=== PATIENT | female | born 1960 | race Caucasian/White ===

== ENCOUNTER → 2024-03-20 09:30 | Outpatient (REF) | payer OTHER, SELFPAY | LOC: HWRAD 09:30 | PROVIDERS: ATTENDING PHYSICIAN Physician Assistant Medical | DX: M85.80 Other specified disorders of bone density and structure, unspecified site (principal) | CPT/HCPCS: 77080 ==

== ENCOUNTER → 2024-04-17 13:36 | Outpatient (REF) | payer OTHER, SELFPAY | LOC: HWRAD 13:36 | PROVIDERS: ATTENDING PHYSICIAN Physician Assistant | DX: R91.8 Other nonspecific abnormal finding of lung field (principal) | CPT/HCPCS: 71250 ==

== ENCOUNTER → 2025-01-02 13:18 | Outpatient (REF) | payer OTHER, SELFPAY | LOC: HWWDC 13:18 | PROVIDERS: ATTENDING PHYSICIAN Nurse Practitioner Adult Health; FAMILY PHYSICIAN Physician Assistant Medical | DX: Z12.31 Encounter for screening mammogram for malignant neoplasm of breast (principal) | CPT/HCPCS: 77063; 77067 ==

== ENCOUNTER 2025-02-13 18:17 | Inpatient (IN) | payer OTHER, SELFPAY ==
[2025-02-13] VITALS (7 sets, daily range): BP systolic 127–152; BP diastolic 73–90; BMI 23.5; BMI 23.4
[2025-02-13 10:45] LABS: Glucose - Point of Care 94 mg/dl (70-99)
[2025-02-13 11:54] LABS: Hematocrit 46.4 % (37.0-47.0); Hemoglobin 15.6 g/dL (12.0-16.0); Mean Corp Hgb Conc. 33.6 g/dL (33.0-37.0); Mean Corpuscular Volume 94.7 fL (81.0-99.0); Platelet Count 290 10^3/uL (130-400); Red Cell Dist. Width 12.9 % (11.5-14.5)
--- NOTE | 2025-02-13 11:54 | ED.GENMED ---
History of Present Illness
General
Chief Complaint: Blood Sugar Problem
Source: patient
Exam Limitations: none
Time Seen by Provider: 02/13/25 11:52
History of Present Illness
History of Present Illness:
65yoF with a history of anxiety presenting with her daughter for evaluation of memory loss. Patient went to the gym this morning around 9am and did a strength fitness class. At the end of the class, she alerted the instructor that she was feeling
disoriented. Patient had memory loss and did not remember doing the fitness class and did not remember getting to the gym. She had a conversation with her daughter this morning before the gym and was acting normally. Patient also does not
remember getting to the hospital or going through triage. She is otherwise asymptomatic and denies any headache, visual changes, dizziness, weakness, paresthesias. Of note, patient has been under a lot of stress as she is currently undergoing a
wine certification.
Phy Exam
General Physical Exam
General Presentation: well appearing and no apparent distress
General Skin: warm and dry
General Habitus: normal
General Mental: alert
ENT Exam
ENT Exam: normocephalic
Cardiovascular Exam
Cardiovascular Exam: regular rate/rhythm and no murmur
Pulmonary Exam
Pulmonary Exam: lungs clear, no respiratory distress, no rales, no crackles, no rhonchi and no wheezing
Neurological Exam
Neurological Exam: alert, CN II-XII intact, no motor deficits, no sensory deficits, speech normal and other (Asks repetitive questions. Oriented to person, place, time. CN 2-12 intact. Negative drift x4. Normal finger to nose and heel to reardon
bilaterally.)
Skin Exam
Skin Exam: normal color and warm/dry
Psychiatric Exam
Psychiatric Exam: normal mood/affect
Scores
NIH Stroke Score
Level of Consciousness: 0 - Alert
LOC Questions: 0-Answers both correctly
LOC Commands: 0-Performs both correctly
Best Horizontal Gaze: 0-Normal
Visual Beckham: 0=Normal, no visual loss
Facial Palsy: 0=Normal, symmetrical
Motor - Right Arm: 0=No drift 10 seconds
Motor - Left Arm: 0=No drift 10 seconds
Motor - Right Le-No drift 5 seconds
Motor - Left Le-No drift 5 seconds
Limb Ataxia: 0-Absent
Sensation: 0-Normal
Best Language: 0-No aphasia
Dysarthria: 0-Normal
Extinction and Inattention: 0-No abnormality
NIH Total Score:: 0
Course
Orders/Labs/Results
Orders:
Orders
02/13/25 10:46
Electrocardiogram (*1) Urgent
Reason for Study: Chest Pain
EKG- Treatment ONCE
02/13/25 11:35
CBC/No Diff [Complete Blood Count/No Diff] Urgent
Comprehensive Metabolic Panel Urgent
Troponin I Urgent
02/13/25 12:10
CT Head W/o Iv Contrast Urgent
Comment:
Reason For Exam: acute memory loss
02/13/25 12:56
Consult Neurology [NEUROLOGY CONSULT] Urgent
Consulting Provider: Luis Craven
Was physician already notified: Yes
02/13/25 14:01
EEG Routine Routine
Reason for Exam: TGA
Neurology Consult:: DR. HARGROVE
MR Brain Without Contrast Routine
Comment:
Reason For Exam: TGA
Recent pill cam endoscopy?: No
02/13/25 14:17
Acetaminophen [Tylenol] 1,000 mg PO NOW STA
Abnormal Lab Results
02/13/25
11:35
MCH 31.8 H pg
(27.0-31.0)
BUN 19 H mg/dl
(7-17)
02/13/25 11:35
02/13/25 11:35
Vital Signs
Initial and Last Documented VS:
Initial Vital Signs
Temp Pulse Resp BP Pulse Ox
97.7 F 67 16 148/80 100
02/13/25 10:41 02/13/25 10:41 02/13/25 10:41 02/13/25 10:41 02/13/25 10:41
Last Documented Vital Signs
Temp Pulse Resp BP Pulse Ox
97.7 F 63 15 152/90 98
02/13/25 10:41 02/13/25 13:51 02/13/25 13:51 02/13/25 12:12 02/13/25 13:15
MDM/Problems Addressed
Differential Diagnosis Includes:
65yoF here with acute memory loss that began this morning after doing an exercise class. No other symptoms. She does not remember going to the gym or coming to the hospital. Also does not remember that her is [place] currently. She has been
under a lot of stress recently. VSS. She is awake and alert. No focal neuro deficits noted and NIHSS is 0. Differential diagnosis includes but is not limited to: transient global amnesia, CVA, partial seizure
Initial ED plan: Check cardiac labs, EKG, and CT head. Will discuss with neurology.
*Pulse Oximetry
SaO2: 100
Oxygen Mode of Delivery: Room air
Patient hypoxic: no (100%)
*EKG
Interpreted by ED Provider?: Yes
EKG Intrepretation Date: 02/13/25
Heart Rate: 56
Rate: bradycardiac
Rhythm: sinus
[place]: normal axis
Interval: normal interval
QRS Pattern: normal QRS
Ischemia: no ischemia
*Critical Care Note
Total Time (30-74mins, 75-104mins- exclusive of procedures): Not Applicable
Update Note
Update Note:
EKG shows NSR without ischemic changes. CT head negative for acute findings. Patient evaluated by neurology and Dr. Craven agrees with likely diagnosis of transient global amnesia. On reassessment, patient continues to have memory loss and does not
recall speaking with me or the neurologist earlier today. Neurology recommending MRI and EEG. Patient admitted for further evaluation.
ED Attending Note
-
Portions of this chart may have been created with voice recognition software.� Occasional wrong word or��sound alike� substitutions may have occurred due to the inherent limitations of voice recognition software.
Discharge Plan
Departure
Patient Disposition: Admit
Date of Disposition: 02/13/25
Time of Disposition: 14:18
Presentation/result/management discussed w/ accepting MD/DO: Hospitalist
Discharge Problem:
Amnesia
Prescriptions:
No Action
fluticasone propionate [Flonase] 50 mcg/actuation [place],Suspension
1 spray INTRANASAL DAILYPRN PRN (Reason: allergies)
Referrals:
UNKNOWN - PT NOT,INTERVIEWE [Unknown Provider]
Interventions
Interventions:
*Risk Screen - Suicide Last Done: 02/13/25 10:41
*General Assessment Last Done: 02/13/25 10:41
*Neglect/Abuse Screening Last Done: 02/13/25 10:41
*ED- Fall Risk Assessment Last Done: 02/13/25 12:16
*ED COVID-19 Vaccine History Last Done: 02/13/25 13:30
ED- Neurological Assessment Last Done: 02/13/25 13:45
Discharge Date and Time
Print Language: DANISH
[2025-02-13 12:13] LABS: ALT (SGPT) 20 U/L (0-35); AST (SGOT) 26 U/L (14-36); Albumin 5.0 g/dl (3.5-5.0); Alkaline Phosphatase 51 U/L (38-126); Blood Urea Nitrogen 19 mg/dl (7-17); Calcium 9.5 mg/dl (8.4-10.2); Carbon Dioxide 28 mmol/L (22-30); Chloride 105 mmol/L (98-107); Glucose 94 mg/dl (70-99); Potassium 4.7 mmol/L (3.5-5.1); Sodium 138 mmol/L (135-145); Total Protein 8.2 g/dl (6.3-8.2); eGFR > 60.00
[2025-02-13 12:25] LABS: Troponin I < 0.012 ng/ml
--- NOTE | 2025-02-13 13:53 | CON.NEURO ---
Neuro Assessment/Plan
Assessment
head CT imgs rev'd, normal report pending
clinically this is transient global amnesia, which may be a plumbing problem (TIA) or electrical problem (simple partial seizure) or it's own entity.
symptoms are not resolved after ~5 hours
In this [place] standard of care is typically brain MRI without contrast and routine EEG, though the tests are typically unremarkable, I would consider optional, and it rarely recurs. She initially wanted to go home, but ultimately agreed to stay.
Consultation
Order
Date of Consultation: 02/13/25
Requesting Provider:
Reason for Consult:
Subjective/Objective
Subjective Data
Date of Service: February 13, 2025
from ED notes:
65yoF with a history of anxiety presenting with her daughter for evaluation of memory loss. Patient went to the gym this morning and did a strength fitness class. At the end of the class, she alerted the instructor that she was feeling
disoriented. Patient had memory loss and did not remember doing the fitness class and did not remember getting to the gym. She got to the gym around 9 AM this morning. She had a conversation with her daughter prior to this and was acting
normally. Patient also does not remember getting to the hospital or going through triage. She is otherwise asymptomatic and denies any headache, visual changes, dizziness, weakness, paresthesias. Of note, patient has been under a lot of stress as
she is currently undergoing a wine certification.
In the ED, she kept asking the same questions and appeard to have difficulty understanding what I was explaining; after CT scan she did not remember speaking with me earlier.
Objective Data
Vital Signs
Temp Pulse Resp BP Pulse Ox
36.5 C 67 16 148/80 100
02/13/25 10:41 02/13/25 10:41 02/13/25 10:41 02/13/25 10:41 02/13/25 11:54
Lab Results
02/13/25 11:35
02/13/25 11:35
Sodium 138 mmol/L (135-145) 02/13/25 11:35
Potassium 4.7 mmol/L (3.5-5.1) 02/13/25 11:35
BUN 19 mg/dl (7-17) H 02/13/25 11:35
Glucose 94 mg/dl (70-99) 02/13/25 11:35
Calcium 9.5 mg/dl (8.4-10.2) 02/13/25 11:35
Patient Allergies
Cephalosporins Allergy (Verified 02/13/25 10:46)
Shortness of Breath
Iodinated Contrast Media Allergy (Verified 02/13/25 10:46)
Anaphylaxis
penicillin G Allergy (Verified 02/13/25 10:46)
Rash
Penicillins Allergy (Verified 02/13/25 10:46)
Rash
Physical Exam
-
repeatedly asking the same questions
AAOx age, month, speech clear, language intact
VFF, EOMI, face symmetric,
full strength b/l UE/LE, no drift
sensation intact to touch/temp
finger to nose intact
DTR normal/symmetric
[2025-02-13] MEDS: TYLENOL 1000 MG PO (14:26)
--- NOTE | 2025-02-13 14:29 | PHANOTE ---
med rec note- patient stated she stopped her Livalo 1mg and Lexapro 10mg both were daily
--- NOTE | 2025-02-13 15:56 | CM ---
CM reviewed chart, patient seen bedside with daughter and friends, initial assessment completed. 65yoF with a history of anxiety presenting with her daughter for evaluation of memory loss.
Patient resides with her daughter, son, and in a multiple story home, bedroom on the second floor, 2-3 steps to enter home. Patient is independent with ADLs/IADLs, denies DME, VN/SNF hx. Patient PCP Carine Cuello, pharmacy [facility], confirms prescription coverage. Patient denies insecurities at home. CM will continue to follow for all discharge planning needs.
Plan; home no needs likely
--- NOTE | 2025-02-13 16:26 | EEG.RPT ---
Electroencephalogram Report
Recording
Date of EE02/13/25
Type of EEG: Routine
Length of EEG recordin mins
Done with Video Recording: Yes
Patient Status: Inpatient
Recording Conditions: Awake and Drowsy
Hyperventilation Performed: No
Photic Stimulation Performed: Yes
Hand Dominance: Right
Report
Clinical Background:�65 year old woman with transient global amnesia
Introduction: A routine bedside EEG was done using International 10-20 electrode placement protocol.
Background: In the most alert state, the PDR is 10-11 Hz in frequency with normal amplitude. There is spontaneous variability and reactivity.�
Sleep: No sleep is seen.�
Focal/epileptiform: There were no focal or epileptiform discharges. No clinical or electrographic seizures occurred during this recording.
Photic stimulation: resulted in normal driving response. There was no photo myogenic or photoparoxysmal response.�
Impression: Normal EEG
--- NOTE | 2025-02-13 16:42 | HPS.HSE ---
Addendum entered and electronically signed by Jas Nguyen MD 02/14/25 13:18:
EEG completed however read pending
CT brain without acute findings
Hemodynamically stable
Labs unremarkable
Differential diagnosis for aphasia is transient global in nature, TIA, acute conversion disorder, transient global amnesia as she is currently under multiple stressors biggest 1 his the paper is due next month for her wanting degree
Await MRI findings and final EEG report
Neurology following
Already on statin. Will appreciate neurology's input
Original Note:
Family Physician
-
Family Physician: Carine Cuello
Chief Complaint
-
Confusion/amnesia
History of Present Illness
Patient is a 65-year-old female with past medical history of migraine with aura (remote) and recurrent UTIs who presented to the [facility] emergency department due to confusion and memory loss. History was obtained from the patient and
family at the bedside, including her daughter, sisters, and [id number]. Patient went to the gym this morning for a fitness class around 9 AM, with her daughter reporting that she was acting normally before leaving this morning. The patient
reportedly then developed confusion and memory loss after her strength training fitness class ended. Patient notified an instructor at the gym of her confusion, and they helped the patient in contact with daughter. The patient's daughter then
picked the patient up from the gym and brought her to the emergency department. Patient's daughter states that there were no reports of loss of consciousness or seizure-like activity at the gym. The patient's confusion and memory loss have
persisted since the daughter picked her up from the gym. At the bedside, the patient continues to be confused and cannot recall any of the events of today, including this morning prior to going to the gym. She states it 'feels like a dream.'
Patient repeats phrases already discussed. Patient reports that she has vague memories of events prior to today, but details are elusive. Patient is able to identify herself, her present situation in the hospital in [place], and the month and
year. Patient is unable to recall events that happened in the last several minutes, such as an EEG being performed or my entering the room. Patient does state that she feels like she is starting to come out of a fog. Other than a dull headache,
patient denies any associated symptoms.
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 Patient and family deny any similar
episodes to this in the past. Patient and family deny any recent head trauma.
Medical History
Past Medical History
Past Medical History: Reports Other (Remote history of migraine with aura; recurrent UTIs several years ago); Denies Arrhythmia, CVA, HTN, Hypothyroidism, IDDM, NIDDM or Seizures
Past Surgical History: Denies Cholecystectomy
Social History
Tobacco: Non-smoker
Alcohol: Daily (1 to 2 glasses of wine per day)
Drug: None
Personal:
Family History
Family History: CAD (Father), Diabetes (Mother) and Other (Mother-hypothyroidism, restrictive bronchiolitis)
Allergies / Home Medications
Allergies reflects when Allergies were last updated in [employer].
Home Medications with original date entered in [employer]
Allergy/Medication List:
Allergies
Allergy/AdvReac Type Severity Reaction Status Date / Time
Cephalosporins Allergy Shortness Verified 02/13/25 10:46
of Breath
Iodinated Contrast Media Allergy Anaphylaxis Verified 02/13/25 10:46
penicillin G Allergy Rash Verified 02/13/25 10:46
Penicillins Allergy Rash Verified 02/13/25 10:46
Home Medications
fluticasone propionate 50 mcg/actuation nasal spray,suspension 1 spray intranasal DAILYPRN PRN allergies 02/13/25
Review of Systems
-
History Source: Patient and Family
Constitutional: Denies Fever, Fatigue or Chills
Respiratory: Denies Trouble Breathing
Cardiac: Denies Chest Pain, Palpitations or Syncope
Abdomen/GI: Denies Abdominal Pain, Nausea, Vomiting or Diarrhea
: Denies Dysuria, Frequency or Urgency
Skin: Reports No Symptoms
Neurological: Reports Headache (Dull headache) and Other (Denies vision change); Denies Dizzy, Weakness or Numbness
Psych: Reports Calm and Other (Confused)
Physical Exam
Vital Signs
Vital Signs
Temp Pulse Resp BP Pulse Ox
97.7 F 63 15 152/90 98
02/13/25 10:41 02/13/25 13:51 02/13/25 13:51 02/13/25 12:12 02/13/25 13:15
Physical Exam
General: Well Developed, Well Nourished, No Apparent Distress, Comfortable and Conversant; No Fever, Chills, Sweats or Slurred Speech
HEENT: NormoCephalic, Anicteric, Moist mucous membranes, Atraumatic and PERRLA
Respiratory: Clear and Non Labored Respirations; No Wheezes or Crackles
Cardiac: S1/S2 and Regular Rhythm; No Bradycardia, Tachycardia, Murmur, Rub, Gallop or Peripheral Edema
GI: Soft, Non Tender, Non Distended and Normal Bowel Sounds
Musculoskeletal: No Cyanosis and No Edema
Skin: Warm and Dry
Neuro: Awake, Alert, Oriented (Oriented to self, situation and the hospital in [place], and the month and year (could not tell me the date)), No Motor Deficits, Cranial Nerves Intact, No Sensory Deficits and Other (No dysmetria; no
dysdiadochokinesia); No Slurred Speech, Facial Droop or Tremors
Psych: Calm and Confused (Difficulty remembering prior events from today, including once just several minutes or more ago)
Laboratory Results
-
02/13/25 11:35
02/13/25 11:35
Laboratory Results
Total Bilirubin 0.5 mg/dl (0.2-1.3) 02/13/25 11:35
AST 26 U/L (14-36) 02/13/25 11:35
ALT 20 U/L (0-35) 02/13/25 11:35
Alkaline Phosphatase 51 U/L (38-126) 02/13/25 11:35
Troponin I < 0.012 ng/ml 02/13/25 11:35
Impression/Plan
-
IMPRESSION: Ms. Araujo is a 65-year-old female with past medical history of migraine with aura (remote) and recurrent UTIs who presented to the [facility] emergency department due to confusion and memory loss since this morning. Since
presenting to the hospital, the patient has undergone lab work and a CT of her head without contrast, which are unremarkable. The patient's EKG soon after presentation showed sinus bradycardia (56 bpm) but was otherwise unremarkable.
PLAN:
#Amnesia
Amnesic episode persisting from this morning until late afternoon (ongoing). AFVSS. NFD. NIHSS 0.
Imaging
- CT head w/o contrast: Normal
- MRI ordered, not yet completed
Lab evaluation
- CBC, BMP unremarkable
- TSH, urine tox pending
EKG on presentation: Sinus bradycardia, otherwise unremarkable. Repeat EKG this afternoon showed NSR.
EEG pending
Telemetry, neurochecks, NIHSS
Psychiatry, PT, OT, speech consulted
DVT PPx: SCDs
CODE STATUS: Full
[2025-02-13 19:29] LABS: TSH 4.07 uIU/ml (0.47-4.68)
[2025-02-13] MEDS: TYLENOL 650 MG PO (19:46)
[2025-02-14 03:12] VITALS: BP 131/84
[2025-02-14] MEDS: TYLENOL 650 MG PO ×2 (06:20→10:36)
[2025-02-14 07:22] LABS: Hematocrit 42.6 % (37.0-47.0); Hemoglobin 14.4 g/dL (12.0-16.0); Mean Corp Hgb Conc. 33.8 g/dL (33.0-37.0); Mean Corpuscular Volume 94.2 fL (81.0-99.0); Platelet Count 275 10^3/uL (130-400); Red Cell Dist. Width 12.9 % (11.5-14.5)
[2025-02-14 07:30] VITALS: BP 148/78
[2025-02-14 07:31] LABS: Blood Urea Nitrogen 15 mg/dl (7-17); Calcium 8.9 mg/dl (8.4-10.2); Carbon Dioxide 26 mmol/L (22-30); Chloride 107 mmol/L (98-107); Estimated Creatinine Clearance 62 ml/min; Glucose 83 mg/dl (70-99); Potassium 4.2 mmol/L (3.5-5.1); Sodium 138 mmol/L (135-145); eGFR > 60.00
[2025-02-14 11:00] VITALS: BP 120/77
--- NOTE | 2025-02-14 11:20 | CON.MD ---
Consultation - Medical
-
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
morning at 9 AM and approached the teacher saying she was confused and lost her memory. Daughter brought her to ED. Had thorough work-up and Neurology consultation; so far all negative. Awaiting MRI. She lost all memory from pulling into parking
lot of the gym until 1:30 PM in the hospital. Memory of these events still lost. However, cognition and memory now completely restored. Now has mild headache and had one yesterday as well. Has history of migraine with visual aura prior to
menopause; never with neurological signs.
She is prescribed Lexapro, likely 10 mg. for the past several years for anxiety and stress beginning with the development of severe parosmia following COVID with strong aversion to multiple foods. This was cured by a ganglion block in [place] and now
she has full holiness of normal taste and smell. However, she has only beeen taking Lexapro every other day recently.
Sh edenies feeling depressed recently. Uses Advil PM each night for middle insomnia with good results. Appetite is good; weight stable. Until yesterday, no concerns about cognition or memory.
Past Psychiatric History: Never treated with antidepressants, benzodiazepines, sleep medications prior to starting Lexapro within the past few years. Never clinically depressed. Never suicidal. No manic or hypomanic episodes. No panic attacks,
OCD or hallucinations.
Family History: Both parents . Mother had anxiety and depression -- had a very difficult childhood with of father at a young age and adoption away of a sibling. No family history of serious mental illness. Has sister 6 years older
who will be visiting her today. to a man from [facility] who is a builder. They owned an [employer] together for a while. Has three children. Oldest son in [place] living with girlfriend. Younger son has had severe anxiety
which has caused considerable disability. Lives at home; not currently in treatment. Youngest is a daughter who is 23 and graduated college and is very mature.
Social History: Lived in [place], [place] until 13 and then moved to [place], [place]. Bullied in middle school; mother comforted her. In high level classes in high school. 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 Always enjoyed
cooking and now pursuing wine studies as a personal interest. Teaches some classes. She does not use tobacco. Never used marijuana or other drugs. Has 1-2 glasses of wine a night. No hard alcohol.
Medical history: hyperlipidemia; elevated TSH resolved without treatment; pulmonary nodule. Iodine and PCN allergies.
MSE: Woman, appearing her chronological age, resting in bed. Alert and oriented. No tics, tremors or involuntary movements. Had headache in area below eye. Denies feeling depressed; eager to be discharged from the hospital. Affect appropriate.
Related very well. No current or past suicidal ideation. Denies any hallucinations (visual, auditory, olfactory except for the parosmia which resolved); no evidence of delusions or paranoia. Speech is well-articulated. Memory and cognition now
normal. Bright.
LABS: CT of head w/o contrast negative; UDS negative; TSH 4.07; Ca 8.9; BUN 15; Creat 0.7; Na 138; WBC 5.1; Hgb 14.4. ECG sinus bradycardia.
Discussion: There does no seem to be a medical cause for this several hour period of confusion and amnesia. It is possible her lipid lowering medication can cause memory problems (Livedo) but this seems unlikely due to acute nature of the amnesia.
While she had a headache, and a history of migraine, this also does not seem to be likely nor seizure as there is no report of post-ictal state. Therefore, the diagnosis of Transient Global Amnesia seems most appropriate.
Psychiatric Diagnosis: Transient Global Amnesia G45.4
Plan: Advised not to take Lexapro every other day due to short half-life and potential for withdrawal symptoms. Seems reasonable to taper and potentially discontinue. SSRI's can potentiate alcohol as well. Advised limit alcohol. Await MRI
results. No formal psychiatric follow-up needed,, can be handled by PCP.
Signing off.
[2025-02-14 11:38] VITALS: BP 124/82; PULSE 70; O2SAT 97
--- NOTE | 2025-02-14 11:48 | PTOTSP ---
Patient presents to therapy functioning at an independent level. She is able to perform all functional assessments without issue and no symptoms throughout. Patient deferred stair assessment noting that she does not feel that they will be a
problem at all. Currently, patient is not presenting with any functional limitations, subjectively reports that everything is feeling back to normal and that she is ready to go home. At this time, there are no skilled needs present. Alerted
patient to keep mobilizing normally - sitting up for meals and gong to the bathroom. If she notices new symptoms or decreased ability to function, please reconsult. At this time, will sign off - no skilled needs present.
--- NOTE | 2025-02-14 13:19 | W.DCSUMMARY ---
Addendum entered and electronically signed by Jas Nguyen MD 02/15/25 13:32:
mri brain
IMPRESSION:
1. No MRI evidence for acute infarct or transient global amnesia.
2. Mild subcortical white matter disease in the frontal lobes. Diagnostic possibilities are (1) migraine headaches or (2) mild white matter leukoaraiosis.
3. Mild diffuse cerebral and cerebellar volume loss.
Original Note:
Discharge Summary
Discharge Data
Date of Admission: 02/13/25
Date of Discharge: 02/15/25
-
Pending Results: No
Hospital Course
65-year-old female with past medical history of migraine with aura (remote) and recurrent UTIs
Presented with complaints of confusion and memory loss that started to occur while in the gym during strength fitness class. Evaluated by neurology recommended EEG and MRI brain. EEG without acute findings. MRI without acute findings. Neurology
cleared for discharge.
Additionally should be noted this could be acute conversion disorder as under stress. Outpatient PCP follow-up
CTBrain
IMPRESSION:
Normal head CT.
Seen on day of discharge which was 02/14/2025. Symptomatology has completely resolved. No new complaints. No acute overnight events.
Awaiting MRI
EEG per neurology after I spoke with neurology was no acute findings
NAD
Scleral Anicteric
MMM
No JVD
CTABL
RRR, S1/S2
Soft, NT, ND, BS+
Warm, Dry
AAOx3
Calm
Discharge pending MRI findings. Neurology to make the last decision based off of MRI if aspirin is needed or not.
Discharge Plan
-
Patient Disposition: Home (Routine Discharge)
Discharge Diagnosis/Procedures: TIA versus transient global amnesia
Condition: Good
Diet: As tolerated, 2 Gram Sodium and No added salt
Activity Restrictions/Additional Instructions:
Presented with complaints of confusion and memory loss that started to occur while in the gym during strength fitness class. Evaluated by neurology recommended EEG and MRI brain. EEG without acute findings. MRI without acute findings. Neurology
cleared for discharge.
Additionally should be noted this could be acute conversion disorder as under stress. Outpatient PCP follow-up
CTBrain
IMPRESSION:
Normal head CT.
Referrals:
Carine Cuello PA-C [Family Provider, Family Practice]
Prescriptions:
Continued
fluticasone propionate 50 mcg/actuation [place],Suspension
1 spray INTRANASAL DAILYPRN PRN (Reason: allergies)
pitavastatin calcium 1 mg Tablet
1 mg PO DAILY
Discharge Orders:
Discharge Patient (As Directed); Ordered 02/14/25
Ordered By: Jas Nguyen
Discharge Date and Time
Discharge Date/Time: 02/14/25 18:12
Print Language: POLISH
--- NOTE | 2025-02-14 14:00 | CM ---
Patient seen at bedside in 4 east. patient daughter and sister present. Patient pending MRI test and states that she is doing better. Patient family very supportive. Patient plan is home with no needs at this time. CM will continue to follow for
discharge planning needs.
Plan; home with no needs vs vn
--- NOTE | 2025-02-14 14:50 | PTOTSP ---
Speech Therapy Evaluation:
Pt with acute risk factor of dysphagia including concern for CVA vs transient amnesia. NIH 0 and imaging negative thus far. Oral and pharyngeal phases of swallowing appeared functional at bedside. No overt s/sx of aspiration, pt passed 3oz swallow
screen, WBC WNL, pt on room air, and without dysphagia hx.
Recommend:
1. Cont. regular solids and thin liquids
2. Meds as tolerated
3. General aspiration precautions
4. DESIGNER WRITER to s/o - please reconsult if aspiration concerns arise
[2025-02-14 15:00] VITALS: BP 149/93
--- NOTE | 2025-02-14 16:50 | PTCARENOTE ---
Pt AAO x3, LAMBERT well, ambulatory in room/to BR, andi well, no c/o weakness/dizziness. Sl anxious at times. VSS. Telemetry:NSR. On room air- pulse ox 99%, no SOB noted. Abd soft, andi Po well. Voids in BR without difficulty. Pt awaiting MRI
results pending DC to home.
--- NOTE | 2025-02-14 17:51 | PTCARENOTE ---
Pt DC'd to home; per Dr. Craven pt is 'good to go'. Pt given CVA education packet; reviewed sx of TIA/CVA with pt. Pt ambulatory to exit/refused WC. No c/o at time of DC.
== END 2025-02-14 18:12 | disposition home or self-care (01) | DRG 69 ==
LOC: 4 EAST ACU 18:17
PROVIDERS: ADMITTING PHYSICIAN Hospitalist; CONSULT PHYSICIAN Psychiatry & Neurology Clinical Neurophysiology; CONSULT PHYSICIAN Psychiatry & Neurology Psychiatry; EMERGENCY PHYSICIAN Emergency Medicine; FAMILY PHYSICIAN Physician Assistant Medical
DX: G45.9 Transient cerebral ischemic attack, unspecified (principal); R47.01 Aphasia; F44.0 Dissociative amnesia; G43.109 Migraine with aura, not intractable, without status migrainosus; G45.4 Transient global amnesia; F41.9 Anxiety disorder, unspecified; E78.5 Hyperlipidemia, unspecified; R90.82 White matter disease, unspecified; Z88.0 Allergy status to penicillin; Z88.1 Allergy status to other antibiotic agents; Z91.041 Radiographic dye allergy status; Z87.440 Personal history of urinary (tract) infections; Z82.49 Family history of ischemic heart disease and other diseases of the circulatory system; Z83.3 Family history of diabetes mellitus
CPT/HCPCS: 70450; 70551; 80048; 80053; 80306; 82962; 84443; 84484; 85027; 92610; 93005; 95816; 97161; 97165; 99285